=== PATIENT | female | born 1990 | race Caucasian/White ===

== ENCOUNTER 2020-01-10 06:50 | Emergency (ER) | payer MEDICAID ==
[2020-01-10] MEDS ORDERED: methylPREDNISolone Sodium Succinate 125 MG/2 ML SDV IM ONE (07:30)
--- NOTE | 2020-01-10 07:43 | EDM.PDOC ---
ED HPI GENERAL MEDICAL PROBLEM - General Chief Complaint: Skin Complaint Stated Complaint: ALLERGIC REACTION Time Seen by Provider: 01/10/20 07:10 Source of Information: Reports: Patient History Limitations: Reports: No Limitations - History of Present Illness INITIAL COMMENTS - FREE TEXT/NARRATIVE: 29-year-old female in with a widespread itchy rash, especially on the trunk and proximal extremities for the past 24 hours. She also feels like her throat is scratchy and a little swollen. No fevers or chills, no pain, no nausea or vomiting. She is on no medications and has not had this in the past. No joint pains or swelling, no headache. Onset: Gradual Duration: Hour(s): (Has developed over the past 24 to 36 hours) Location: Reports: Generalized Improves with: Reports: Other (Benadryl was only mildly helpful, topical Benadryl actually "burned") Worsens with: Reports: None Associated Symptoms: Reports: No Other Symptoms - Related Data Allergies Allergy/AdvReac Type Severity Reaction Status Date / Time No Known Allergies Allergy Verified 01/10/20 07:07 Home Meds: Home Meds NK [No Known Home Meds] 01/10/20 [History] Past Medical History Respiratory History: Reports: Asthma Genitourinary History: Reports: Other (See Below) Other Genitourinary History: 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5 Musculoskeletal History: Reports: Fracture Other Musculoskeletal History: right ankle fracture in remote past - Infectious Disease History Infectious Disease History: Reports: Chicken Pox - Past Surgical History Female Surgical History: Reports: None Social & Family History - Tobacco Use Smoking Status *Q: Current Every Day Smoker Years of Tobacco use: 15 Packs/Tins Daily: 0.3 - Caffeine Use Caffeine Use: Reports: Coffee, Energy Drinks, Soda - Recreational Drug Use Recreational Drug Use: No ED ROS GENERAL - Review of Systems Review Of Systems: See Below Constitutional: Denies: Fever, Chills, Malaise HEENT: Reports: Throat Swelling (Feels like the back of her throat is swollen, no difficulty swallowing or breathing) Respiratory: Denies: Shortness of Breath, Cough Cardiovascular: Denies: Chest Pain GI/Abdominal: Denies: Abdominal Pain, Nausea, Vomiting Skin: Reports: Pruritis, Rash, Urticaria Neurological: Reports: No Symptoms Psychiatric: Reports: No Symptoms ED EXAM, SKIN/RASH Exam: See Below Exam Limited By: No Limitations General Appearance: Alert, No Apparent Distress Eye Exam: Bilateral Eye: Normal Inspection Throat/Mouth: Other (Patient does have some mild edematous changes to the posterior pharynx and uvula, no lesions, exudate and the majority of the mucosa is normal) Respiratory/Chest: No Respiratory Distress, Lungs Clear Cardiovascular: Regular Rate, Rhythm Neurological: Alert, Oriented Skin: Other (Patient has widespread asymmetric erythematous urticarial-like lesions most concentrated on the trunk and back, but numerous lesions are on the extremities as well. They are blanching, none are vesicular and if you have somewhat of a papular component) Course - Vital Signs Last Recorded V/S: Last Vital Signs Temp 97.8 F 01/10/20 07:19 Pulse 94 01/10/20 07:19 Resp 16 01/10/20 07:19 BP 157/99 H 01/10/20 07:19 Pulse Ox 97 01/10/20 07:19 - Orders/Labs/Meds Meds: Medications Discontinued Medications Generic Name Dose Route Start Last Admin Trade Name Momo PRN Reason Stop Dose Admin Methylprednisolone Sodium Succinate 125 mg 01/10/20 07:30 01/10/20 07:37 Solu-Medrol IM 01/10/20 07:31 125 mg ONETIME ONE Administration - Re-Assessments/Exams Free Text/Narrative Re-Assessment/Exam: 01/10/20 07:41 This patient seems to have a systemic allergic response to something, and a form of urticaria. She will be given 125 mg of IM Solu-Medrol, and placed on 60 mg of prednisone daily for the next 5 days. Continue with oral Benadryl, and recheck in 48 hours if not improving satisfactorily. She can return anytime if worsening. Departure - Departure Time of Disposition: 07:51 Disposition: Home, Self-Care 01 Clinical Impression: Urticaria - Discharge Information Instructions: Hives Referrals: PCP,None [Primary Care Provider] - Forms: ED Department Discharge Care Plan Goals: Take 6 pills of prednisone with food between 12 noon and 3 in the afternoon today, then take 6 pills each morning with your first meal for the next 4 days. Continue with oral Benadryl, and return anytime if worsening such as increased throat swelling or breathing issues. Also consider rechecking in 2 to 3 days if not improving satisfactorily. Sepsis Event Note - Evaluation Sepsis Screening Result: No Definite Risk - Focused Exam Vital Signs: Vital Signs Temp Pulse Resp BP Pulse Ox 01/10/20 07:19 97.8 F 94 16 157/99 H 97 01/10/20 07:18 97.8 F 94 16 157/99 H 97 Date Exam was Performed: 01/10/20 Time Exam was Performed: 10:43
== END 2020-01-10 07:53 | disposition home or self-care (01) ==
LOC: JP.ED 06:50
DX: L50.9 Urticaria, unspecified (principal); F17.210 Nicotine dependence, cigarettes, uncomplicated
CPT/HCPCS: 96372; 99282; J2930